=== PATIENT | female | born 1935 | race Caucasian/White ===

== ENCOUNTER 2022-09-01 20:36 | Outpatient (CLI) | payer OTHER, SELFPAY | END 2022-09-01 20:37 | disposition home or self-care (01) | LOC: AMB 09-02 11:34 | PROVIDERS: Visit Provider Family Medicine | DX: S49.91XA Unspecified injury of right shoulder and upper arm, initial encounter (principal); W19.XXXA Unspecified fall, initial encounter; Y92.009 Unspecified place in unspecified non-institutional (private) residence as the place of occurrence of the external cause | CPT/HCPCS: A0425; A0427 ==